=== PATIENT | male | born 1935 | race Caucasian/White ===

== ENCOUNTER 2016-08-22 17:41 | Emergency (ER) | payer MEDICARE, OTHER ==
[2016-08-22 18:48] VITALS: BP 153/67
--- NOTE | 2016-08-23 00:03 | ED ---
Throat Pain/Nasal Congestion - HPI Summary HPI Summary: 81 y/o male with h/o increased swelling on R cheek while eating subway sub. Patient states has eaten sub before without difficulty, denies airway swelling, no prior episodes, states past 2 days noted burning sensation in cheek with eating, currently non-tender, no fever, chills. no medication changes, no drainage, no warmth, erythema. Family stateas swelling has decreased since arrival to ER> - History of Current Complaint Chief Complaint: EDFacialInjury Time Seen by Provider: 08/22/16 18:15 Hx Obtained From: Patient Onset/Duration: Sudden Onset, Lasting Minutes, Still Present Severity: Mild Associated Signs And Symptoms: Positive: Negative - Epiglottits Risk Factors Epiglottis Risk Factors: Negative - Allergies/Home Medications Allergies/Adverse Reactions: Allergies Allergy/AdvReac Type Severity Reaction Status Date / Time No Known Allergies Allergy Verified 08/22/16 17:51 PMH/Surg Hx/FS Hx/Imm Hx Previously Healthy: Yes Endocrine/Hematology History: Reports: Hx Anticoagulant Therapy - coumadin - Surgical History Surgery Procedure, Year, and Place: [facility] Infectious Disease History: No Infectious Disease History: Denies: Traveled Outside the [place] in Last 30 Days - Social History Alcohol Use: None Substance Use Type: Reports: None Smoking Status (MU): Former Smoker Review of Systems Constitutional: Negative Eyes: Negative Positive: Other - Right cheek fullness Cardiovascular: Negative Respiratory: Negative Gastrointestinal: Negative Genitourinary: Negative Musculoskeletal: Negative Skin: Negative Neurological: Negative Psychological: Normal All Other Systems Reviewed And Are Negative: Yes Physical Exam Triage Information Reviewed: Yes Vital Signs On Initial Exam: Initial Vitals Temp Pulse Resp BP Pulse Ox 98.7 F 86 16 150/85 99 08/22/16 17:48 08/22/16 17:48 08/22/16 17:48 08/22/16 17:48 08/22/16 17:48 Vital Signs Reviewed: Yes Appearance: Positive: Well-Appearing, No Pain Distress, Well-Nourished Skin: Positive: Warm, Skin Color Reflects Adequate Perfusion, Other - fullness without tenderness over RIght cheek from posterior mandible to midline cheek, no tenderness, moderate firm, no warthm, erythema. Eyes: Positive: Normal, EOMI, Conjunctiva Clear ENT: Positive: Normal ENT inspection Dental: Positive: Other - no pain, tenderness, no drainage noted, normal dental / mouth examination Neck: Positive: Supple, Nontender, No Lymphadenopathy Respiratory/Lung Sounds: Positive: Clear to Auscultation, Breath Sounds Present - Julienne Coma Scale Coma Scale Total: 15 Diagnostics - Vital Signs Vital Signs Temp Pulse Resp BP Pulse Ox 08/22/16 18:47 96.7 F 68 18 153/67 08/22/16 17:48 98.7 F 86 16 150/85 99 - Laboratory Lab Statement: Any lab studies that have been ordered have been reviewed, and results considered in the medical decision making process. EENT Course/Dx - Course Course Of Treatment: Patient evaluation with DR. Hinson, possible salivary stone with parotid inflammation, resolving spontaneously. warm compresses, hard candies, increase fluids. follow up with PCP if continues, no abx treatment currently, discussed warning signs of infection w patient/ . - Diagnoses Provider Diagnoses: Parotid gland fullness Discharge - Discharge Plan Condition: Good Disposition: HOME Patient Education Materials: Parotid Duct Obstruction (ED) Referrals: Ignacio Peck MD [Primary Care Provider] - Additional Instructions: - Increase fluid intake. - Suck on hard candies that are tart/ sour such as lemon drops often - Tylenol/ Motrin as needed for pain - Massage area to increase flow - Warm heat to area to increase flow
== END 2016-08-22 18:47 | disposition home or self-care (01) ==
LOC: ED 17:41
DX: K11.8 Other diseases of salivary glands (principal)
CPT/HCPCS: 99282

== ENCOUNTER 2017-02-24 18:41 | Emergency (ER) | payer MEDICARE, OTHER ==
[2017-02-24 20:15] VITALS: BP 153/85
--- NOTE | 2017-02-24 21:05 | ED ---
Laceration/Wound HPI - HPI Summary HPI Summary: Patient presents with CC of small .75cm laceration to the back of the head after a screwdriver fell onto his head 1 hour ago. He denies LOC or pain. He is only concerned d/t coumadin medication and is concerned for bleeding. He states there was a moderate amount of blood prior to arrival which has stopped and is controlled after arrival to ED. Denies other symptoms. - History of Current Complaint Stated Complaint: HEAD INJURY Time Seen by Provider: 02/24/17 19:00 Hx Obtained From: Patient Onset/Duration: Sudden Onset Aggravating: Nothing Alleviating: Nothing Onset Severity: Mild Current Severity: Mild Pain Intensity: 1 Pain Scale Used: 0-10 Numeric Associated Signs & Symptoms: Negative Related Hx: Anticoagulat Use - Allergy/Home Medications Allergies/Adverse Reactions: Allergies Allergy/AdvReac Type Severity Reaction Status Date / Time No Known Allergies Allergy Verified 08/22/16 17:51 PMH/Surg Hx/FS Hx/Imm Hx Previously Healthy: Yes Endocrine/Hematology History: Reports: Hx Anticoagulant Therapy - coumadin - Surgical History Surgery Procedure, Year, and Place: [facility] - Immunization History Hx Pertussis Vaccination: No Immunizations Up to Date: Unable to Obtain/Confirm Infectious Disease History: No Infectious Disease History: Denies: Traveled Outside the [place] in Last 30 Days - Social History Occupation: Unemployed, Retired Lives: With Family Alcohol Use: None Hx Substance Use: No Substance Use Type: Reports: None Hx Tobacco Use: Yes Smoking Status (MU): Former Smoker Review of Systems Constitutional: Negative Eyes: Negative Cardiovascular: Negative Respiratory: Negative Positive: no symptoms reported, see HPI Musculoskeletal: Negative Positive: Other - .75cm laceration Neurological: Negative Psychological: Normal All Other Systems Reviewed And Are Negative: Yes Physical Exam Triage Information Reviewed: Yes Vital Signs On Initial Exam: Initial Vitals Temp Pulse Resp Pulse Ox 98.4 F 69 20 95 02/24/17 18:43 02/24/17 18:43 02/24/17 18:43 02/24/17 18:43 Vital Signs Reviewed: Yes Appearance: Positive: Well-Appearing, No Pain Distress, Well-Nourished Skin: Positive: Warm, Skin Color Reflects Adequate Perfusion, Other - .75cm laceration to the back of the head Neck: Positive: Supple, No Lymphadenopathy Respiratory/Lung Sounds: Positive: Clear to Auscultation, Breath Sounds Present Cardiovascular: Positive: Normal, RRR, Pulses are Symmetrical in both Upper and Lower Extremities Musculoskeletal: Positive: Normal, Strength/ROM Intact Neurological: Positive: Sensory/Motor Intact, Alert, Oriented to Person Place, Time Psychiatric: Positive: Normal AVPU Assessment: Alert Diagnostics - Vital Signs Vital Signs Temp Pulse Resp BP Pulse Ox 02/24/17 20:14 98.7 F 63 16 153/85 02/24/17 18:47 157/71 02/24/17 18:45 98.6 F 70 20 170/99 96 02/24/17 18:43 98.4 F 69 20 95 - Laboratory Lab Statement: Any lab studies that have been ordered have been reviewed, and results considered in the medical decision making process. Laceration Repair Course/Dx - Course Course Of Treatment: Small closed .75cm laceration to the head. Patient is concerned for bleeding d/t coumadin use. No bleeding upon arrival. Patient states the area bled for approx 2 minutes. Now well controlled. Laceration is superificial and edges and closed. No need for sutures or pooja. Small amount of swelling under the lac with no large hematoma or concern for a bleed. Patient will follow up if symptoms become worse. - Differential Dx Differental Diagnoses: Avulsion, Hematoma, Puncture Wound - Clinical Impression Provider Diagnoses: Laceration of head Discharge - Discharge Plan Condition: Stable Disposition: HOME Patient Education Materials: Hematoma (ED) Referrals: Ignacio Peck MD [Primary Care Provider] - Additional Instructions: If you develop any worsening symptoms such as swelling around the area or pooling of blood under the wound which is quickly enlarging, return to ED immediately. Continue with all medications as prescribed. Images - Images Head: 1 - small .75cm laceration to the back of the head
== END 2017-02-24 20:05 | disposition home or self-care (01) ==
LOC: ED 18:41
DX: S01.01XA Laceration without foreign body of scalp, initial encounter (principal); W20.8XXA Other cause of strike by thrown, projected or falling object, initial encounter; Y93.9 Activity, unspecified; Y92.9 Unspecified place or not applicable; Z79.01 Long term (current) use of anticoagulants; Z95.0 Presence of cardiac pacemaker; Z87.891 Personal history of nicotine dependence
CPT/HCPCS: 99282

== ENCOUNTER 2017-04-02 20:19 | Emergency (ER) | payer MEDICARE, OTHER ==
[2017-04-02] MEDS ORDERED: traMADol TAB* 50 MG PO ONE (23:06)
--- NOTE | 2017-04-02 23:31 | ED ---
I, Oh,Luis, scribed for Owen Demarco MD on 04/02/17 at 2305 . Back Pain - HPI Summary HPI Summary: This 81 y/o male presents to ED for left sided lower back pain and left flank pain since 1600 PM yesterday. Pt was putting up stuffs on high shelves at time of onset. Movement makes pain worse. Negative fever, dysuria, or n/v. APAP taken without much relief. PMHx includes afib s/p pacemaker placement and enlarged prostate. He denies any prior kidney stone. Pt is currently on coumadin. Primary care involves Dr. Peck. - History of Current Complaint Chief Complaint: EDFlankPain Stated Complaint: BACK/LEFT SIDE PAIN Time Seen by Provider: 04/02/17 22:58 Hx Obtained From: Patient, Medical Records Onset/Duration: Sudden Onset Onset/Duration: Started Days Ago, Atraumatic, Still Present Timing: Constant Pain Intensity: 10 Pain Scale Used: 0-10 Numeric Aggravating Symptom(s): Movement Alleviating Symptom(s): Rest Associated Signs And Symptoms: Positive: Flank Pain - left. Negative: Fever - Allergies/Home Medications Allergies/Adverse Reactions: Allergies Allergy/AdvReac Type Severity Reaction Status Date / Time No Known Allergies Allergy Verified 04/02/17 20:34 PMH/Surg Hx/FS Hx/Imm Hx Endocrine/Hematology History: Reports: Hx Anticoagulant Therapy - coumadin Cardiovascular History: Reports: Hx Atrial Fibrillation - s/p pacemaker placement. Coumadin, Hx Hypertension GI History: Reports: Other GI Disorders - diverticulitis History: Denies: Hx Kidney Stones - Surgical History Surgery Procedure, Year, and Place: [facility] Infectious Disease History: No Infectious Disease History: Denies: Traveled Outside the [place] in Last 30 Days - Family History Known Family History: Positive: Hypertension - Social History Alcohol Use: None Hx Substance Use: No Substance Use Type: Reports: None Hx Tobacco Use: Yes Smoking Status (MU): Former Smoker Review of Systems Negative: Fever Negative: Vomiting, Nausea Negative: dysuria Positive: Other - left lower back pain All Other Systems Reviewed And Are Negative: Yes Physical Exam Triage Information Reviewed: Yes Vital Signs On Initial Exam: Initial Vitals Temp Pulse Resp BP Pulse Ox 98 F 61 16 161/94 95 04/02/17 20:36 04/02/17 20:36 04/02/17 20:36 04/02/17 20:36 04/02/17 20:36 Vital Signs Reviewed: Yes Appearance: Positive: Well-Appearing, No Pain Distress Skin: Positive: Warm Head/Face: Positive: Normal Head/Face Inspection Eyes: Positive: DANIELLE ENT: Positive: Hearing grossly normal Neck: Positive: Supple Respiratory/Lung Sounds: Positive: Breath Sounds Present Cardiovascular: Positive: RRR Abdomen Description: Positive: Nontender, Soft. Negative: CVA Tenderness (R), CVA Tenderness (L) Musculoskeletal: Positive: Other - mild paralumbar spinal spasm Neurological: Positive: Alert, Oriented to Person Place, Time Psychiatric: Positive: Affect/Mood Appropriate Diagnostics - Vital Signs Vital Signs Temp Pulse Resp BP Pulse Ox 04/02/17 21:19 98.6 F 65 17 158/69 95 04/02/17 20:36 98 F 61 16 161/94 95 - Laboratory Lab Statement: Any lab studies that have been ordered have been reviewed, and results considered in the medical decision making process. - CT Ab/P CT Interpretation: No Acute Changes - No inflammatory process identified in the abd or pelvis. No abd mass, adenopathy or collection seen. Note obstruting urinary tract calculi or evidnece of urinaty tract obstruction seen. CT Interpretation Completed By: Radiologist Re-Evaluation - Re-Evaluation First Eval Change: Improved - results d/w pt Back Pain Course/Dx - Course Assessment/Plan: This 81 y/o male presents to ED for left lower back pain or left flank pain since 1600 PM. Pt was moving up stuffs to high shelves at the time of onset. PMHx is negative for any prior kidney stones. Movement makes pain worse. CT Ab/P is taken to r/o any possible kidney stones or UTI. Upon examination pt is without CVA tenderness. UA is normal. Pt is stable throughout ED course, and discharged with dx of back pain. - Diagnoses Provider Diagnoses: Back pain Discharge - Discharge Plan Condition: Stable Disposition: HOME Prescriptions: Cyclobenzaprine HCl [Flexeril 5 mg (NF)] 5 mg PO TID #20 tab Patient Education Materials: Back Pain (ED), Cyclobenzaprine (By mouth) Referrals: Ignacio Pcek MD [Primary Care Provider] - 2 Days The documentation as recorded by the Tim snow Soohyun accurately reflects the service I personally performed and the decisions made by me, Owen Demarco MD.
[2017-04-02 23:50] LABS: Urine Bilirubin Negative (Negative); Urine Glucose Negative (Negative); Urine Nitrite Negative (Negative)
[2017-04-03] MEDS ORDERED: Cyclobenzaprine TAB* 10 MG PO ONE (00:05)
[2017-04-03] MEDS ORDERED: Morphine INJ* 4 MG/ML 1 ML SYRINGE SUBCUT ONE (00:07)
[2017-04-03 03:05] VITALS: BP 134/78
--- NOTE | 2017-04-03 07:56 | RAD ---
CLINICAL HISTORY: Left flank pain COMPARISON: December 21, 2014 TECHNIQUE: Multiple contiguous axial CT scans were obtained of the abdomen and pelvis, without intravenous contrast enhancement. Coronal and sagittal multiplanar reformations are submitted for review. Oral contrast was not administered. FINDINGS: The study is limited by the lack of intravenous contrast. This limits evaluation of the solid organs and vasculature. LUNG BASES: The lung bases are clear. LIVER: There are low-attenuation lesions of the left lobe of liver that are 2 small to definitively characterize but are statistically most likely small cysts versus hemangiomas. BILE DUCTS: There is no intrahepatic or extrahepatic biliary dilatation. GALLBLADDER: The gallbladder is normal, without pericholecystic inflammatory change. PANCREAS: The pancreas is normal, without mass or ductal dilatation. SPLEEN: There are scattered low-attenuation lesions of the spleen that are too small to definitively characterize. These can be identified on the previous examination and are stable. UPPER GI TRACT: Evaluation of the gastrointestinal tract is limited by incomplete gastric distention. The upper GI tract is unremarkable. SMALL BOWEL AND MESENTERY: The small bowel is normal in contour, course, and caliber. There is no obstruction or dilatation. COLON: There are multiple diverticula of the descending colon and descending and sigmoid colon. There is a tubular, vermiform, hollow viscus that is blind ending, and originates from the cecum, consistent with a normal appendix. There is no periappendiceal inflammatory change. There is no periappendiceal inflammatory change. ADRENALS: Normal bilaterally. KIDNEYS: The kidneys are normal in shape, size, contour, and axis. There is no hydronephrosis or nephrolithiasis. BLADDER: The bladder is smooth in contour. PELVIC ORGANS: The prostate is diffusely enlarged. The seminal vesicles are symmetric. AORTA: There is calcific atherosclerotic disease of the abdominal aorta and its branches, without aneurysmal dilatation IVC: Unremarkable LYMPH NODES: There is no lymphadenopathy by size criteria. ABDOMINAL WALL: There is no evidence for abdominal wall hernia. BONES AND SOFT TISSUES: Degenerative changes are noted OTHER: None IMPRESSION: 1. NO HYDRONEPHROSIS OR NEPHROLITHIASIS. 2. DIVERTICULOSIS. 3. ENLARGED PROSTATE. 4. ATHEROSCLEROSIS
== END 2017-04-03 03:03 | disposition home or self-care (01) ==
LOC: ED 20:19
DX: M54.5 Low back pain (principal); I48.91 Unspecified atrial fibrillation; Z79.01 Long term (current) use of anticoagulants; Z95.0 Presence of cardiac pacemaker; I10 Essential (primary) hypertension; N40.0 Benign prostatic hyperplasia without lower urinary tract symptoms; K57.92 Diverticulitis of intestine, part unspecified, without perforation or abscess without bleeding; Z87.891 Personal history of nicotine dependence
CPT/HCPCS: 74176; 81003; 99282; A9270-GY; J2270